=== PATIENT | male | born 1995 | race Caucasian/White ===

== ENCOUNTER 2016-11-10 06:17 | Emergency (ER) | payer OTHER ==
[~2016-11-10] VITALS: Ht 177.8 cm; Wt 70.5 kg
[~2016-11-10 06:17] MED LIST: IBUP-1050 PO; ZTHM250 PO
[2016-11-10 06:22] VITALS: TEMP 36.4; Ht 177.8 cm; Wt 70.5 kg
[2016-11-10] MEDS ORDERED: SODIUM CHLORIDE 0.9% 1000ML 1,000 ML IV STA ×2 (07:07→07:58)
[2016-11-10] MEDS ORDERED: ONDANSETRON INJ 2 MG/ML 2 ML VIAL IV STA (07:07)
[2016-11-10] MEDS ORDERED: MoRPHine SULFATE 4 MG/ML 1 ML CARP\\VIAL IV STA (07:07)
--- NOTE | 2016-11-10 07:13 | EMERGENCY ROOM VISIT NOTE ---
History First contact with patient: 07:00 Chief Complaint: RECTAL PAIN Stated Complaint: HAVE FISTULA - EXTREME PAIN Nursing Triage Summary: Pt states he has a "left fistula" that is causing severe pain. Pt states he has been drained in the past. Pt states she is scheduled to have it surgically repaired. History of Present Illness The patient is a 21 year old male who presents to the Emergency Room with complaints of rectal and abdominal pain. 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 He states that over 1-2 months ago he was evaluated for it was diagnosed with the fistula. He has an appointment to see GI and surgery. He states that appointment is in approximately 10 days. He states that the pain has significantly worsened and become constant. He rates his pain a 10/10 and is primarily in the rectal area. He reports chronic diffuse abdominal pain. He states that the fistula has stopped draining. He reports a subjective fever but denies taking his temperature. He reports nausea. He denies any chest pain, trouble breathing, fever. He denies any vomiting. He denies any diarrhea. He believes his mother has a history of Crohn's disease. Review of Systems A 10 system review of systems was completed with positives and pertinent negatives listed in the HPI. Past Medical/Surgical History Medical Problems: (1) Mononucleosis Family History Diabetes mellitus Hypertension Kidney disease Social History Smoking Status: Never Smoker Marital Status: in relationship Housing Status: lives with significant other Occupation Status: employed Current/Historical Medications Scheduled Amphetamine-Dextroamphetamine 30MG (Adderall Xr 30MG), 30 MG PO DAILY Ciprofloxacin Hcl (Cipro), 500 MG PO BID Metronidazole (Flagyl), 500 MG PO TID Omeprazole (Prilosec), Unknown Dose PO DAILY Scheduled PRN Oxycodone Ir (Roxicodone Ir), 1-2 TAB PO Q4H PRN for Pain Allergies Coded Allergies: Cephalosporins (Verified Allergy, Intermediate, hives, 11/10/16) Penicillins (Verified Allergy, Unknown, childhood allergy, 11/10/16) Physical Exam Vital Signs Date Time Temp Pulse Resp B/P (MAP) Pulse Ox O2 Delivery O2 Flow Rate FiO2 11/10/16 11:46 80 18 137/81 98 Room Air 11/10/16 11:09 68 18 138/70 98 Room Air 11/10/16 09:28 61 18 139/64 97 Room Air 11/10/16 08:10 62 18 136/73 98 Room Air 11/10/16 06:22 36.4 64 18 141/89 98 Room Air Physical Exam VITALS: Vitals are noted on the nurse's note and reviewed by myself. Vital signs stable. The patient is afebrile. GENERAL: This is a 21-year-old male, in no acute distress, nondiaphoretic, well- developed well-nourished. SKIN: No rashes. There is no tenting of the skin. Capillary reflex less than 2 seconds. HEAD: Normocephalic atraumatic. EARS: External ears are normal in appearance. EYES: Pupils equal round and reactive to light and accommodation. Conjunctivae without injection, sclerae without icterus. Extraocular movements intact. NOSE: Patent, turbinates without inflammation or discharge. MOUTH: Mucous membranes moist. Tonsils are not enlarged. Pharynx without erythema or exudate. Uvula midline. Airway patent. Tongue does not deviate. NECK: Supple without nuchal rigidity. No lymphadenopathy. No thyromegaly. Cervical spine is nontender. No JVD. HEART: Regular rate and rhythm without murmurs gallops or rubs. LUNGS: Clear to auscultation bilaterally without wheezes, rales or rhonchi. No retractions or accessory muscle use. ABDOMEN: Positive bowel sounds x 4. Soft, mild diffuse upper abdominal tenderness, without masses or organomegaly. RECTAL: There is a tender, raised, indurated area in the pararectal area that measures approximately 0.5 cm in diameter. It is very tender. There is no significant fluctuance. There is a palpable tract that extends to the rectal area. There is no significant surrounding erythema. MUSCULOSKELETAL: No muscle atrophy, erythema, or edema noted. Full range of motion in all extremities. Normal gait. Strength 5/5 throughout. NEURO: Patient was alert and oriented to person place and time. No focal neurological deficits. Medical Decision & Procedures ER Provider Diagnostic Interpretation: [~ rep ct add3]] CT SCAN OF THE ABDOMEN AND PELVIS WITH IV CONTRAST CLINICAL HISTORY: Rectal pain. Reported history of fistula. COMPARISON STUDY: Abdominal CT dated 06/12/15. TECHNIQUE: Following the IV administration of 94 cc of Optiray 320, CT scan of the abdomen and pelvis is performed from the lung bases to the proximal femora. Images are reviewed in the axial, sagittal, and coronal planes. IV contrast was administered without complication. Automated dose control exposure was utilized. CT DOSE: 426.73 mGy.cm FINDINGS: Lung bases: The heart is normal in size and without pericardial effusion. Linear scarring seen at the right lung base. The lung bases are otherwise clear. Liver: The contrast-enhanced liver is normal in size, contour, and attenuation. There is no intrahepatic biliary ductal dilatation. The hepatic veins and portal veins are patent. Gallbladder: Unremarkable. Spleen: Normal in size and attenuation. Pancreas: Unremarkable. Adrenal glands: Unremarkable. Kidneys: The contrast enhanced kidneys are normal in size and without hydronephrosis. The kidneys enhance symmetrically. Abdominal vasculature: The abdominal aorta is normal in course and caliber. Bowel: The small bowel and colon are normal in course and caliber. The appendix is well-visualized and normal. There is mild subcutaneous soft tissue induration identified along the left median gluteal crease inferior to the anus on axial image #436. The perianal soft tissues are otherwise normal as visualized. No fluid collection is seen. Peritoneum: There is no intraperitoneal free air or abdominal ascites. Lymphadenopathy: None. Pelvic viscera: The bladder, prostate, and seminal vesicles are normal in appearance. Skeletal structures: No lytic or blastic lesions are seen. Scattered bone islands are noted in the pelvis. IMPRESSION: 1. There are no acute infectious or inflammatory findings in the abdomen or pelvis. 2. There is minimal subcutaneous soft tissue induration identified along the median gluteal crease inferior to the anus, with may be related to the reported history of fistula. A fistulous tract is not well delineated on today's examination. There is no evidence of perianal abscess. Laboratory Results 11/10/16 07:15 Red Blood Count 5.32, Mean Corpuscular Volume 87.2, Mean Corpuscular Hemoglobin 29.9, Mean Corpuscular Hemoglobin Concent 34.3, Mean Platelet Volume 9.6, Neutrophils (%) (Auto) 57.5, Lymphocytes (%) (Auto) 28.2, Monocytes (%) (Auto) 11.1, Eosinophils (%) (Auto) 2.8, Basophils (%) (Auto) 0.3, Neutrophils # (Auto ) 5.72, Lymphocytes # (Auto) 2.81, Monocytes # (Auto) 1.11, Eosinophils # (Auto ) 0.28, Basophils # (Auto) 0.03 11/10/16 07:15 Test 11/10/16 07:10 11/10/16 07:15 11/10/16 07:22 Urine Color YELLOW Urine Appearance CLEAR (CLEAR) Urine pH 6.0 (4.5-7.5) Urine Specific [place] 1.020 (1.000-1.030) Urine Protein NEG (NEG) Urine Glucose (UA) NEG (NEG) Urine Ketones NEG (NEG) Urine Occult Blood NEG (NEG) Urine Nitrite NEG (NEG) Urine Bilirubin NEG (NEG) Urine Urobilinogen NEG (NEG) Urine Leukocyte Esterase NEG (NEG) White Blood Count 9.96 K/uL (4.8-10.8) Red Blood Count 5.32 M/uL (4.7-6.1) Hemoglobin 15.9 g/dL (14.0-18.0) Hematocrit 46.4 % (42-52) Mean Corpuscular Volume 87.2 fL (80-100) Mean Corpuscular Hemoglobin 29.9 pg (25-34) Mean Corpuscular Hemoglobin Concent 34.3 g/dl (32-36) Platelet Count 274 K/uL (130-400) Mean Platelet Volume 9.6 fL (7.4-10.4) Neutrophils (%) (Auto) 57.5 % Lymphocytes (%) (Auto) 28.2 % Monocytes (%) (Auto) 11.1 % Eosinophils (%) (Auto) 2.8 % Basophils (%) (Auto) 0.3 % Neutrophils # (Auto) 5.72 K/uL (1.4-6.5) Lymphocytes # (Auto) 2.81 K/uL (1.2-3.4) Monocytes # (Auto) 1.11 K/uL (0.11-0.59) Eosinophils # (Auto) 0.28 K/uL (0-0.5) Basophils # (Auto) 0.03 K/uL (0-0.2) RDW Standard Deviation 40.7 fL (36.4-46.3) RDW Coefficient of Variation 12.7 % (11.5-14.5) Immature Granulocyte % (Auto) 0.1 % Immature Granulocyte # (Auto) 0.01 K/uL (0.00-0.02) Prothrombin Time 10.4 SECONDS (9.0-12.0) Prothromb Time International Ratio 1.0 (0.9-1.1) Activated Partial Thromboplast Time 29.4 SECONDS (21.0-31.0) Partial Thromboplastin Ratio 1.1 Anion Gap 6.0 mmol/L (3-11) Est Creatinine Clear Calc Drug Dose 105.9 ml/min Estimated GFR () 110.6 Estimated GFR (Non- 95.5 BUN/Creatinine Ratio 12.5 (10-20) Calcium Level 9.8 mg/dl (8.5-10.1) Total Bilirubin 0.7 mg/dl (0.2-1) Aspartate Amino Transf (AST/SGOT) 11 U/L (15-37) Alanine Aminotransferase (ALT/SGPT) 22 U/L (12-78) Alkaline Phosphatase 76 U/L (45-117) Total Protein 7.9 gm/dl (6.4-8.2) Albumin 4.5 gm/dl (3.4-5.0) Globulin 3.4 gm/dl (2.5-4.0) Albumin/Globulin Ratio 1.3 (0.9-2) Lipase 94 U/L (73-393) Bedside Lactic Acid Venous 0.68 mmol/L (0.90-1.70) Medications Administered Medications (Trade) Dose Ordered Sig/Jr Route Start Time Stop Time Status Last Admin Dose Admin Sodium Chloride 1,000 ml @ 999 mls/hr Q1H1M STAT IV 11/10/16 07:07 11/10/16 08:07 DC 11/10/16 07:30 999 MLS/HR Ondansetron HCl (Zofran Inj) 4 mg NOW STAT IV 11/10/16 07:07 11/10/16 07:10 DC 11/10/16 07:29 4 MG Morphine Sulfate (MoRPHine SULFATE INJ) 4 mg NOW STAT IV 11/10/16 07:07 11/10/16 07:10 DC 11/10/16 07:29 4 MG Sodium Chloride 1,000 ml @ 200 mls/hr Q5H STAT IV 11/10/16 07:58 11/10/16 12:17 DC 11/10/16 08:08 200 MLS/HR Hydromorphone HCl (Dilaudid Inj) 0.5 mg NOW STAT IV 11/10/16 08:15 11/10/16 08:17 DC 11/10/16 08:21 0.5 MG Hydromorphone HCl (Dilaudid Inj) 0.5 mg NOW STAT IV 11/10/16 11:25 11/10/16 11:27 DC 11/10/16 11:44 0.5 MG ED Course The patient was seen and examined. Previous visits were reviewed. The patient does not have a fever or leukocytosis. He does not have any significant electrolyte abnormalities. Lactic acid was not elevated. Lipase was not elevated. INR was 1.0. Urinalysis is negative. CT scan of the abdomen and pelvis with IV and oral contrast reveals soft tissue induration in the perianal area. There is no evidence for fistulous tract or perirectal abscess at this time. The patient was hydrated with normal saline He was given 4 mg IV morphine and 4 mg IV Zofran with good improvement in his pain but it did not last long He was given 0.5 mg IV Dilaudid which helped his pain He was given a second 0.5 mg IV Dilaudid prior to discharge The patient presents to the emergency Department with rectal pain. The patient does not have any fluctuance and induration, erythema or warmth on exam. He is afebrile without leukocytosis. There is no evidence for abscess on imaging. There is no evidence for colitis on CT. There is no obvious fistulous track on CT imaging. I can feel what seems to be a fistulous track on exam. The patient has an appointment scheduled with general surgery in 10 days. He states that he was supposed to have the surgery done a while ago but he never followed through stating he could not get off work. He will be given prescription for pain medication. He'll be started on Cipro and Flagyl for potential early infection. He is encouraged to take a stool softener. He should return to the ER with any worsening symptoms. The case was discussed with Dr. Mendoza who agrees with the assessment and treatment plan Medical Decision DIFFERENTIAL DIAGNOSIS: Hepatitis, cholecystitis, cholangitis, biliary colic, pancreatitis, pneumonia, subdiaphragmatic abscess, appendicitis, inguinal hernia , nephrolithiasis, inflammatory bowel disease, mesenteric adenitis, peptic ulcer disease, GERD, gastritis, pancreatitis, myocardial infarction, pericarditis, ruptured aortic aneurysm, appendicitis, gastroenteritis, bowel obstruction, splenic infarct, diverticulitis, mesenteric ischemia, metabolic, peritonitis, among others. [place] Drug Monitoring Program Search Results: patient reviewed within database, no issues identified Impression Primary Impression: Rectal fistula Departure Information Dispostion Home / Self-Care Condition GOOD Prescriptions Oxycodone Ir (Roxicodone Ir) 5 Mg Tab 1-2 TAB PO Q4H Y for Pain, #20 TAB For Initial Treatment Prov: Kiersten Roper PA-C 11/10/16 Metronidazole (Flagyl) 500 Mg Tab 500 MG PO TID for 10 Days, #30 TAB Prov: Kiersten Roper PA-C 11/10/16 Ciprofloxacin Hcl (CIPRO) 500 Mg Tab 500 MG PO BID for 10 Days, #20 TAB Prov: Kiersten Roper PA-C 11/10/16 Referrals No Doctor, Assigned (PCP) Patient Instructions [facility] Additional Instructions Cipro and Flagyl as prescribed, until finished. Do not drink alcohol when taking the Flagyl as it will cause vomiting Oxy IR 1-2 tablets every 4-6 hrs as needed for worse pain. No driving or alcohol use with Oxy IR. Follow up with surgery as previously scheduled Return with any worsening fevers, pain or generalized worsening symptoms
[2016-11-10] MEDS ORDERED: OPTIRAY 320 IV PRN (07:30)
[2016-11-10 07:35] LABS: URINE APPEARANCE CLEAR (CLEAR); URINE BILIRUBIN NEG (NEG); URINE COLOR YELLOW; URINE NITRITE NEG (NEG); UROBILINOGEN NEG (NEG); ZZUR CULT IF INDIC CLEAN CATCH NO
[2016-11-10 07:38] LABS: BASO % 0.3 %; BASO ABS # 0.03 K/uL (0-0.2); COMPLETE YES; EOS % 2.8 %; HEMATOCRIT 46.4 % (42-52); IG% 0.1 %; LYMPH % 28.2 %; LYMPH ABS # 2.81 K/uL (1.2-3.4); MEAN CELL VOLUME 87.2 fL (80-100); MEAN CORPUSCULAR HEMOGLOBIN 29.9 pg (25-34); MEAN CORPUSCULAR HGB CONC 34.3 g/dl (32-36); MEAN PLATELET VOLUME 9.6 fL (7.4-10.4); MONO % 11.1 %; NEUT % 57.5 %; PLATELET COUNT 274 K/uL (130-400); RED BLOOD COUNT 5.32 M/uL (4.7-6.1); WHITE BLOOD COUNT 9.96 K/uL (4.8-10.8)
[2016-11-10 07:41] LABS: MANUAL MICROSCOPIC REQUIRED? NO; REVIEW REQ? NO
[2016-11-10] MEDS ORDERED: AMPH30CA3 PO (07:42)
[2016-11-10] MEDS ORDERED: PRLSR20 PO (07:42)
[2016-11-10 07:51] LABS: PARTIAL THROMBOPLASTIN RATIO 1.1; PROTHROMBIN TIME (PATIENT) 10.4 SECONDS (9.0-12.0)
[2016-11-10 07:54] LABS: BUN/CREATININE RATIO 12.5 (10-20); CALCIUM 9.8 mg/dl (8.5-10.1); CREATININE 1.1 mg/dl (0.60-1.40)
[2016-11-10 07:57] LABS: ALB/GLOB RATIO 1.3 (0.9-2)
[2016-11-10] MEDS ORDERED: HYDROmorphone INJ 0.5 MG/0.5 ML SYR IV STA ×2 (08:15→11:25)
--- NOTE | 2016-11-10 10:23 | DIAGNOSTIC IMAGING REPORT ---
CT SCAN OF THE ABDOMEN AND PELVIS WITH IV CONTRAST CLINICAL HISTORY: Rectal pain. Reported history of fistula. COMPARISON STUDY: Abdominal CT dated 06/12/15. TECHNIQUE: Following the IV administration of 94 cc of Optiray 320, CT scan of the abdomen and pelvis is performed from the lung bases to the proximal femora. Images are reviewed in the axial, sagittal, and coronal planes. IV contrast was administered without complication. Automated dose control exposure was utilized. CT DOSE: 426.73 mGy.cm FINDINGS: Lung bases: The heart is normal in size and without pericardial effusion. Linear scarring seen at the right lung base. The lung bases are otherwise clear. Liver: The contrast-enhanced liver is normal in size, contour, and attenuation. There is no intrahepatic biliary ductal dilatation. The hepatic veins and portal veins are patent. Gallbladder: Unremarkable. Spleen: Normal in size and attenuation. Pancreas: Unremarkable. Adrenal glands: Unremarkable. Kidneys: The contrast enhanced kidneys are normal in size and without hydronephrosis. The kidneys enhance symmetrically. Abdominal vasculature: The abdominal aorta is normal in course and caliber. Bowel: The small bowel and colon are normal in course and caliber. The appendix is well-visualized and normal. There is mild subcutaneous soft tissue induration identified along the left median gluteal crease inferior to the anus on axial image #436. The perianal soft tissues are otherwise normal as visualized. No fluid collection is seen. Peritoneum: There is no intraperitoneal free air or abdominal ascites. Lymphadenopathy: None. Pelvic viscera: The bladder, prostate, and seminal vesicles are normal in appearance. Skeletal structures: No lytic or blastic lesions are seen. Scattered bone islands are noted in the pelvis. IMPRESSION: 1. There are no acute infectious or inflammatory findings in the abdomen or pelvis. 2. There is minimal subcutaneous soft tissue induration identified along the median gluteal crease inferior to the anus, with may be related to the reported history of fistula. A fistulous tract is not well delineated on today's examination. There is no evidence of perianal abscess. Electronically signed by: Edgar Adams M.D. 11/10/2016 10:21 AM Dictated Date/Time: 11/10/2016 10:11 AM
[2016-11-10] MEDS ORDERED: METR-163 PO ×2 (11:33→11:37)
[2016-11-10] MEDS ORDERED: OXYC1TAB3 PO ×2 (11:33→11:37)
[2016-11-10] MEDS ORDERED: CIPR-255 PO ×2 (11:33→11:37)
[2016-11-10 11:46] VITALS: BP 137/81; PULSE 80; O2SAT 98
== END 2016-11-10 12:01 | disposition home or self-care (01) ==
LOC: C.EDB 06:19
DX: K60.4 Rectal fistula (principal); Z83.3 Family history of diabetes mellitus; Z82.49 Family history of ischemic heart disease and other diseases of the circulatory system; Z84.1 Family history of disorders of kidney and ureter; Z79.899 Other long term (current) drug therapy

== ENCOUNTER 2017-07-04 11:16 | Emergency (ER) | payer OTHER ==
[~2017-07-04] VITALS: Ht 172.7 cm; Wt 70.8 kg
[~2017-07-04 11:16] MED LIST changes: +AMPH30CA3 PO; +CIPR-255 PO; -IBUP-1050 PO; +PRLSR20 PO; -ZTHM250 PO
[2017-07-04 11:21] VITALS: Ht 172.7 cm; Wt 70.8 kg
[2017-07-04] MEDS ORDERED: BUSP15TA70 PO (11:43)
--- NOTE | 2017-07-04 12:07 | DIAGNOSTIC IMAGING REPORT ---
R HAND MIN 3 VIEWS ROUTINE CLINICAL HISTORY: R hand pain s/p fall trauma. Pain. COMPARISON: None. DISCUSSION: The bones and joint spaces appear intact. There is no evidence of fracture, dislocation or bony disease. There is no evidence for soft tissue swelling. IMPRESSION: Negative study. The above report was generated using voice recognition software. It may contain grammatical, syntax or spelling errors. Electronically signed by: Leo Broderick M.D. 07/04/2017 12:06 PM Dictated Date/Time: 07/04/2017 12:02 PM
[2017-07-04 12:40] VITALS: BP 126/66; PULSE 67; TEMP 36.7; O2SAT 98
--- NOTE | 2017-07-04 16:45 | EMERGENCY ROOM VISIT NOTE ---
History First contact with patient: 11:25 Chief Complaint: HAND PAIN/INJURY Stated Complaint: SWOLLEN,PAINFUL,NUMB AND TINGLING, RT HAND History of Present Illness The patient is a 22 year old male who presents to the Emergency Room with complaints of right hand pain after he slipped and fell last night. The patient reports swelling of the hand. The patient has had prior surgery for multiple metacarpal fractures. He currently denies any pain extending into the wrist, forearm or elbow. He denies any paresthesias or numbness. He denies any other injuries from his fall, and rates his discomfort a 5 out of 10. The patient is right-hand dominant. Review of Systems 10 system review was performed and was negative except for pertinent positives and negatives as indicated in history of present illness Past Medical/Surgical History Medical Problems: (1) Mononucleosis Family History Diabetes mellitus Hypertension Kidney disease Social History Smoking Status: Never Smoker Alcohol Use: occasionally Marital Status: in relationship Housing Status: lives with significant other Occupation Status: employed Current/Historical Medications Scheduled Amphetamine-Dextroamphetamine 30MG (Adderall Xr 30MG), 30 MG PO BID Buspirone Hcl (Buspar), 1 TAB PO BID Physical Exam Vital Signs Date Time Temp Pulse Resp B/P (MAP) Pulse Ox O2 Delivery O2 Flow Rate FiO2 07/04/17 12:40 36.7 67 17 126/66 98 07/04/17 12:38 67 17 126/66 98 Room Air 07/04/17 11:21 36.7 70 17 130/67 97 Room Air Physical Exam CONSTITUTIONAL: Healthy and well nourished. Alert and oriented X 3 with positive affect. HEENT: Normocephalic, atraumatic. Pupils equal, round and reactive. NECK: Full active range of motion without discomfort. MUSCULOSKELETAL: Examination of the right hand shows mild edema without any obvious ecchymosis or open wounds. The patient has generalized tenderness to palpation mostly through the MCP region. No obvious deformities noted. Capillary refill of the fingers is less than 2 seconds. No focal tenderness to palpation through the wrist or anatomic snuffbox. INTEGUMENTARY: No rash or other significant dermatologic conditions noted. NEUROLOGIC: Right hand and fingers are sensory intact. Medical Decision & Procedures ER Provider Diagnostic Interpretation: My interpretation of right hand x-rays does not show any acute fractures or dislocations. Radiologist report is as follows: R HAND MIN 3 VIEWS ROUTINE CLINICAL HISTORY: R hand pain s/p fall trauma. Pain. COMPARISON: None. DISCUSSION: The bones and joint spaces appear intact. There is no evidence of fracture, dislocation or bony disease. There is no evidence for soft tissue swelling. IMPRESSION: Negative study. ED Course Patient history and physical exam were performed. Nurse's notes were reviewed. Vital signs were reviewed and were normal. The patient did not appear in any acute distress. He refused any analgesics on initial exam. X-rays of the right hand were normal. The patient was encouraged to intermittently apply ice to the hand. Ibuprofen and Tylenol in alternating fashion as needed for additional pain relief. The patient was encouraged to follow-up with his PCP if symptoms are not improving within the next week. The patient was happy with plan of care, voiced understanding of all discharge instructions, and rated his discomfort a 4 out of 10 at the conclusion of my exam. Medical Decision Medication Reconcilliation Current Medication List: was personally reviewed by me Blood Pressure Screening Patient's blood pressure: Normal blood pressure Impression Primary Impression: Contusion of right hand Additional Impression: Fall from slip, trip, or stumble Departure Information Referrals James Bella M.D. (PCP) Patient Instructions My [facility] Problem Qualifiers Primary Impression: Contusion of right hand Encounter type: initial encounter Qualified Codes: S60.221A - Contusion of right hand, initial encounter Additional Impression: Fall from slip, trip, or stumble Encounter type: initial encounter Qualified Codes: W01.0XXA - Fall on same level from slipping, tripping and stumbling without subsequent striking against object, initial encounter
== END 2017-07-04 12:41 | disposition home or self-care (01) ==
LOC: C.EDB 11:17 → C.EDD 12:41
DX: S60.221A Contusion of right hand, initial encounter (principal); W01.0XXA Fall on same level from slipping, tripping and stumbling without subsequent striking against object, initial encounter; Y92.9 Unspecified place or not applicable; Z86.19 Personal history of other infectious and parasitic diseases; Z83.3 Family history of diabetes mellitus; Z82.49 Family history of ischemic heart disease and other diseases of the circulatory system; Z84.1 Family history of disorders of kidney and ureter; Z79.899 Other long term (current) drug therapy